=== PATIENT | female | born 1995 | race Caucasian/White ===

== ENCOUNTER 2021-09-21 20:00 | Inpatient (IN) | payer OTHER ==
[~2021-09-21 20:00] MED LIST: SUDAFED30 MG PO; VOLTAREN **OUT75 MG PO; ZOFRAN4 MG PO; ZYRTEC10 M3 PO
[2021-09-21 21:14] LABS: HCT 36.4 % (37.0-47.0); HGB 12.3 g/dl (12.5-16.0); MCH 29.2 pg (25.0-31.0); MCHC 33.8 g/dL (32.0-36.0); MCV 86.5 fL (78.0-100.0); MPV 9.5 fL (6.0-9.5); RBC 4.21 M/uL (4.20-5.40); RDW 13.8 % (11.5-14.0); WBC 12.1 K/uL (4.0-10.5)
[2021-09-21 21:15] LABS: BILIRUBIN NEGATIVE (NEGATIVE); BLOOD NEGATIVE Ery/uL (NEGATIVE); CLARITY CLEAR (CLEAR); COLOR YELLOW (YELLOW); GLUCOSE (U) NORMAL (NORMAL); LEUKOCYTES TRACE Leu/uL (NEGATIVE); NITRITE NEGATIVE (NEGATIVE); PROTEIN NEGATIVE (NEGATIVE); SPECIFIC GRAVITY 1.015 (1.001-1.030); UROBILINOGEN 0.2 mg/dL (0.2-1.0); pH 6.5 (5.0-9.0)
[2021-09-21 21:20] LABS: BACTERIA TRACE; URINARY WBC RARE
[2021-09-22 22:20] LABS: HCT 37.2 % (37.0-47.0); HGB 12.1 g/dl (12.5-16.0); MCHC 32.5 g/dL (32.0-36.0); MCV 89.2 fL (78.0-100.0); MPV 9.3 fL (6.0-9.5); RBC 4.17 M/uL (4.20-5.40); RDW 13.9 % (11.5-14.0)
[2021-09-22 22:23] LABS: WBC 26.7 K/uL (4.0-10.5)
[2021-09-23 00:29] LABS: HCT 35.2 % (37.0-47.0); HGB 11.5 g/dl (12.5-16.0); MCH 28.8 pg (25.0-31.0); MCHC 32.7 g/dL (32.0-36.0); MCV 88.2 fL (78.0-100.0); MPV 9.7 fL (6.0-9.5); RBC 3.99 M/uL (4.20-5.40); RDW 13.8 % (11.5-14.0); WBC 25.9 K/uL (4.0-10.5)
[2021-09-23 06:55] LABS: HCT 30.5 % (37.0-47.0); HGB 9.9 g/dl (12.5-16.0); MCH 29.2 pg (25.0-31.0); MCHC 32.5 g/dL (32.0-36.0); MPV 9.4 fL (6.0-9.5); RBC 3.39 M/uL (4.20-5.40); WBC 23.9 K/uL (4.0-10.5)
[2021-09-23 22:12] LABS: HCT 28.1 % (37.0-47.0); HGB 9.1 g/dl (12.5-16.0); MCH 29.4 pg (25.0-31.0); MCHC 32.4 g/dL (32.0-36.0); MCV 90.9 fL (78.0-100.0); MPV 9.3 fL (6.0-9.5); RBC 3.09 M/uL (4.20-5.40); RDW 14.1 % (11.5-14.0)
== END 2021-09-24 12:45 | disposition home or self-care (01) | DRG 787 ==
LOC: FOB 20:00 → FOD 20:00 → FOB 20:12
PROVIDERS: ADMIT Obstetrics & Gynecology
PROC: 10D00Z1 Extraction of Products of Conception, Low, Open Approach (ICD-10-PCS; principal; 2021-09-22 21:00)
DX: O62.1 Secondary uterine inertia (principal); D62 Acute posthemorrhagic anemia; O72.0 Third-stage hemorrhage; O90.81 Anemia of the puerperium; Z20.822 Contact with and (suspected) exposure to COVID-19; O76 Abnormality in fetal heart rate and rhythm complicating labor and delivery; O99.344 Other mental disorders complicating childbirth; F41.9 Anxiety disorder, unspecified; Z37.0 Single live birth; Z3A.39 39 weeks gestation of pregnancy
CPT/HCPCS: 36415; 81001; 84112; 85384; 86850; 86900; 86901; J0456; J0595; J0690; J1100; J1200; J1800; J1885; J2001; J2274; J2300; J2405; J2795; J2916; J3010; J7050; J7120; U0002